=== PATIENT | female | born 1975 | race African-American/Black ===

== ENCOUNTER 2017-10-01 10:43 | Emergency (ER) | payer MEDICAID ==
[~2017-10-01] VITALS: Ht 162.6 cm; Wt 68.0 kg
[2017-10-01] MEDS ORDERED: IBUPROFEN600 MG ORAL (10:50)
[2017-10-01] MEDS ORDERED: ACETAMINOPHEN325 M1 ORAL (10:50)
[2017-10-01 10:55] VITALS: BP 133/76
[2017-10-01] MEDS ORDERED: Albuterol ud Inhalation HHN ONE (11:30)
[2017-10-01] MEDS ORDERED: Ipratropium 0.02% Inh Soln 2.5ml UD HHN ONE (11:30)
[2017-10-01 11:41] LABS: APPEARANCE,URINE CLEAR; BILIRUBIN, URINE NEGATIVE (NEGATIVE); COLOR,URINE PALE YELLOW; GLUCOSE, URINE (UA) NEGATIVE (NEGATIVE); KETONES,URINE NEGATIVE (NEGATIVE); NITRITE,URINE NEGATIVE (NEGATIVE); PH,URINE 8 (4.5-8.0); PROTEIN,URINE NEGATIVE (NEGATIVE); UROBILINOGEN,URINE NORMAL MG/DL (0.0-1.0)
[2017-10-01 11:46] LABS: BASOPHILS % (AUTO) 1.1 % (0.0-2.0); EOSINOPHILS % (AUTO) 1.2 % (0.0-3.0); HEMATOCRIT 30.4 % (37.0-47.0); HEMOGLOBIN 10.4 G/DL (12.0-16.0); LYMPHOCYTES % (AUTO) 22.8 % (20.0-45.0); MEAN CORPUSCULAR VOLUME 90 FL (80-99); MONOCYTES % (AUTO) 8.8 % (1.0-10.0); NEUTROPHILS % (AUTO) 66.1 % (45.0-75.0); PLATELET COUNT 279 K/UL (150-450); RED BLOOD COUNT 3.38 M/UL (4.20-5.40); WHITE BLOOD COUNT 4.6 K/UL (4.8-10.8)
[2017-10-01 11:54] LABS: LEUKOCYTE ESTERASE ,URINE 1+ (NEGATIVE)
--- NOTE | 2017-10-01 12:04 | Diagnostic Imaging Report ---
Indication: Reason For Exam: COUGH Technique: One view of the chest Comparison: Findings: Lungs and pleural spaces are clear. Heart size is normal Impression: No acute process
[2017-10-01 12:05] LABS: ANION GAP 6 mmol/L (5-15); BLOOD UREA NITROGEN 8 mg/dL (7-18); CALCIUM 8.7 MG/DL (8.5-10.1); CARBON DIOXIDE 28 MMOL/L (21-32); CHLORIDE 104 MMOL/L (98-107); POTASSIUM 4.2 MMOL/L (3.5-5.1); SODIUM 137 MMOL/L (136-145)
[2017-10-01 12:15] LABS: ALANINE AMINOTRANSFERASE 36 U/L (12-78); ALBUMIN 2.8 G/DL (3.4-5.0); ALBUMIN/GLOBULIN RATIO 0.7 (1.0-2.7); ALKALINE PHOSPHATASE 82 U/L (46-116); ASPARTATE AMINO TRANSFERASE 24 U/L (15-37); BILIRUBIN,TOTAL 0.3 MG/DL (0.2-1.0); CREATINE KINASE 94 U/L (26-308)
[2017-10-01 13:03] VITALS: BP 113/66
[2017-10-01] MEDS ORDERED: Morphine Sulfate 2mg/ml Inj IVP ONE (15:00)
--- NOTE | 2017-10-01 15:07 | Emergency Room Report ---
History of Present Illness General Chief Complaint: General Complaint Source: Patient (Sonu Downs M.D.) Present Illness HPI Patient is 8 days . She presents with bilateral leg swelling worse on the right-hand side. She also has swelling in her hands. There were no complications during the delivery. She's breast-feeding. She also has a nonproductive cough without fever. She denies any chest pain. She presents today because of shortness of breath. She has no calf pain. During her she had some chronic right leg pain and also some numbness of her ring and little finger on the right-hand side. No fevers or chills. She also has a slight odor to the lochia at this time. There's no dysuria. Never with wheezing before. No prior h/o asthma. (Sonu Downs M.D.) Allergies: Coded Allergies: SULFA (SULFONAMIDE ANTIBIOTICS) (Verified Allergy, Unknown, 10/01/17) Patient History Past Medical History: see triage record Last Menstrual Period: : 7 Para: 5 (Sonu Downs M.D.) Nursing Documentation-[facility] Past Medical History: No Stated History (Snou Downs M.D.) Physical Exam Vital Signs Date Time Temp Pulse Resp B/P (MAP) Pulse Ox O2 Delivery O2 Flow Rate FiO2 10/01/17 10:45 98.1 55 18 133/76 98 Room Air 10/01/17 11:30 21 Sp02 EP Interpretation: reviewed, normal General Appearance: well appearing, no apparent distress, GCS 15 Head: normocephalic, atraumatic Eyes: bilateral eye normal inspection, bilateral eye PERRL ENT: moist mucus membranes Neck: supple Respiratory: lungs clear, normal breath sounds Cardiovascular #1: regular rate, rhythm, edema - bilat R > L Cardiovascular #2: 2+ radial (R) Gastrointestinal: normal inspection, normal bowel sounds, non tender, no mass, non-distended Genitourinary: no CVA tenderness Musculoskeletal: back normal, gait/station normal, normal range of motion, no calf tenderness Neurologic: alert, oriented x3, grossly normal Psychiatric: mood/affect normal Skin: normal inspection, warm/dry (Sonu Downs M.D.) Medical Decision Making Diagnostic Impression: Primary Impression: Edema Qualified Codes: R60.9 - Edema, unspecified Additional Impressions: Bronchospasm 8 days post ER Course Patient with edema, worse on R with bronchospasm 8 days post-. Ddx: viral URI, bronchospasm, DVT, PE amongst others. Evaluation with EKG, CXR, non- invasive study of legs, labs. Will treat with albuterol/atrovent. At risk for PE, but HR and O2 sat against this. Also no chest pain or hemoptysis. EKG without injury. CXR with slight cardiomegaly, no CHF. Labs with normal WBC. Slight elevation of BNP. LFTs, platelets normal. No proteinuria. Non-invasive neg for DVT. Still suspicion high. CTA ordered. Some back pain . Ordered small dose morphine. Some improved pain. Await CTA. Signed out to Dr. Bright. Laboratory Tests Test 10/01/17 11:20 10/01/17 11:35 Urine Color Pale yellow Urine Appearance Clear Urine pH 8 (4.5-8.0) Urine Specific Novi 1.010 (1.005-1.035) Urine Protein Negative (NEGATIVE) Urine Glucose (UA) Negative (NEGATIVE) Urine Ketones Negative (NEGATIVE) Urine Occult Blood 5+ (NEGATIVE) H Urine Nitrite Negative (NEGATIVE) Urine Bilirubin Negative (NEGATIVE) Urine Urobilinogen Normal MG/DL (0.0-1.0) Urine Leukocyte Esterase 1+ (NEGATIVE) H Urine RBC 2-4 /HPF (0 - 2) H Urine WBC 2-4 /HPF (0 - 2) Urine Squamous Epithelial Cells Occasional /LPF Urine Bacteria Occasional /HPF (NONE) White Blood Count 4.6 K/UL (4.8-10.8) L Red Blood Count 3.38 M/UL (4.20-5.40) L Hemoglobin 10.4 G/DL (12.0-16.0) L Hematocrit 30.4 % (37.0-47.0) L Mean Corpuscular Volume 90 FL (80-99) Mean Corpuscular Hemoglobin 30.8 PG (27.0-31.0) Mean Corpuscular Hemoglobin Concent 34.2 G/DL (32.0-36.0) Red Cell Distribution Width 12.0 % (11.6-14.8) Platelet Count 279 K/UL (150-450) Mean Platelet Volume 5.8 FL (6.5-10.1) L Neutrophils (%) (Auto) 66.1 % (45.0-75.0) Lymphocytes (%) (Auto) 22.8 % (20.0-45.0) Monocytes (%) (Auto) 8.8 % (1.0-10.0) Eosinophils (%) (Auto) 1.2 % (0.0-3.0) Basophils (%) (Auto) 1.1 % (0.0-2.0) Prothrombin Time 10.2 SEC (9.30-11.50) Prothrombin Time INR 1.0 (0.9-1.1) PTT 31 SEC (23-33) Sodium Level 137 MMOL/L (136-145) Potassium Level 4.2 MMOL/L (3.5-5.1) Chloride Level 104 MMOL/L (98-107) Carbon Dioxide Level 28 MMOL/L (21-32) Anion Gap 6 mmol/L (5-15) Blood Urea Nitrogen 8 mg/dL (7-18) Creatinine 1.0 MG/DL (0.55-1.30) Estimate Glomerular Filtration Rate > 60 mL/min (>60) Glucose Level 76 MG/DL (74-106) Calcium Level 8.7 MG/DL (8.5-10.1) Total Bilirubin 0.3 MG/DL (0.2-1.0) Aspartate Amino Transferase (AST) 24 U/L (15-37) Alanine Aminotransferase (ALT) 36 U/L (12-78) Alkaline Phosphatase 82 U/L (46-116) Total Creatine Kinase 94 U/L (26-308) Troponin I 0.000 ng/mL (0.000-0.056) Pro-B-Type Natriuretic Peptide 739 pg/mL (0-125) H Total Protein 6.9 G/DL (6.4-8.2) Albumin 2.8 G/DL (3.4-5.0) L Globulin 4.1 g/dL Albumin/Globulin Ratio 0.7 (1.0-2.7) L Microbiology Date/Time Source Procedure Growth Status 10/01/17 11:20 Nasal Nares Influenza Types A,B Antigen (FE) - Final Complete (Sonu Downs M.D.) ER Course I received signout Please see above for full history and physical 42-year-old female with shortness of breath Her vital signs have remained stable, not hypoxic nontachypneic CT angiogram chest was done, negative for PE Patient has been feeling better, vital signs normal Will discharge home with strict return precautions, followup with primary care doctor in 4-5 days CTA CHEST: No evidence of filling defect to suggest pulmonary embolism Thoracic aorta within limits Small pericardial fluid No pleural effusion No focal consolidation (Matt Bright M.D.) EKG Diagnostic Results Rate: bradycardiac ST Segments: no acute changes (Sonu Downs M.D.) Rhythm Strip Diag. Results EP Interpretation: yes Rhythm: no PVC's, no ectopy, other - fernando (Sonu Downs M.D.) Last Vital Signs Date Time Temp Pulse Resp B/P (MAP) Pulse Ox O2 Delivery O2 Flow Rate FiO2 10/01/17 19:09 97.8 64 16 117/67 99 Room Air 21 70 Status: improved (Sonu Downs M.D.) Disposition: HOME, SELF-CARE Condition: Improved Referrals: NON PHYSICIAN (PCP) Sonu Downs M.D. Oct 01, 2017 15:06 Matt Bright M.D. Oct 01, 2017 18:14
[2017-10-01 19:08] VITALS: BP 117/67
[2017-10-01 19:09] VITALS: BP 117/67
[2017-10-02] MEDS ORDERED: ALBUTEROL SULF8.5 GM INH (08:27)
[2017-10-02] MEDS ORDERED: GUAIFENESIN DM118 M1 ORAL (08:27)
--- NOTE | 2017-10-02 11:20 | Diagnostic Imaging Report ---
ndication: Cough, bilateral lower leg edema x5 days, x8 days Technique: IV administration nonionic contrast. Spiral acquisitions obtained from the lung bases to the lung apices. Multiplanar and 3-D reconstructions were generated. Total dose length product 741.9 mGycm. CTDIvol(s) 22.91 mGy. Dose reduction achieved using automated exposure control Comparison: none Findings: Pulmonary arteries are well opacified. No intraluminal filling defects or other findings to suggest acute pulmonary and was demonstrated. No evidence of pulmonary arterial dilatation or biventricular dilatation. No evidence of thoracic aortic aneurysm or dissection There is of atelectasis are seen in the right lung apex. Some atelectasis or scarring is seen at the left lung base. Lungs and pleural spaces are otherwise clear. Normal heart size. There is trace pericardial effusion. No mediastinal or hilar mass or adenopathy. The thyroid is unremarkable. No axillary or chest wall mass or adenopathy. The breasts are engorged, consistent with state. The bones are unremarkable. The included upper abdominal anatomy is unremarkable. Impression: Negative for evidence of acute pulmonary embolus or other acute thoracic vascular pathology Clear lungs Equivocal trace pericardial fluid This agrees with the preliminary interpretation provided overnight by [facility] teleradiology service. The CT scanner at [facility] is accredited by the [employer] and the scans are performed using protocols designed to limit radiation exposure to as low as reasonably achievable to attain images of sufficient resolution adequate for diagnostic evaluation.
--- NOTE | 2017-10-02 18:22 | Cardiology Report ---
APPROVED REPORT EKG Measurement Heart [id number] Sinus bradycardia Otherwise normal ECG
--- NOTE | 2017-10-03 11:36 | Diagnostic Imaging Report ---
APPROVED REPORT CPT Code: 36885 Present Symptoms Comments: R/O DVT BILATERAL: Imaging reveals a patent deep venous system bilaterally. There is no evidence of thrombus within the femoral, popliteal or tibial segments. The greater saphenous veins are also within normal limits. Doppler indicates normal spontaneous flow within these segments.
== END 2017-10-01 19:11 | disposition home or self-care (01) ==
LOC: EMR 12:50
DX: O90.89 Other complications of the puerperium, not elsewhere classified (principal); R60.0 Localized edema; J98.01 Acute bronchospasm; R07.9 Chest pain, unspecified; R04.2 Hemoptysis; Z88.2 Allergy status to sulfonamides
CPT/HCPCS: 36415; 71045; 71275; 80053; 81003; 82550; 83880; 84484; 85025; 85610; 85730; 86710; 93005; 93970; 94640; 94664; 96374; 96375; 99284; J2270; J2405; Q9967; 84443

== ENCOUNTER 2017-12-07 19:29 | Emergency (ER) | payer MEDICAID ==
[~2017-12-07] VITALS: Ht 162.6 cm; Wt 63.5 kg
[~2017-12-07 19:29] MED LIST: ACETAMINOPHEN325 M1 ORAL; ALBUTEROL SULF8.5 GM INH; GUAIFENESIN DM118 M1 ORAL; IBUPROFEN600 MG ORAL
[2017-12-07 19:40] VITALS: BP 104/66
[2017-12-07] MEDS ORDERED: NKM (19:41)
--- NOTE | 2017-12-07 20:54 | Emergency Room Report ---
History of Present Illness General Chief Complaint: Skin Rash/Abscess Source: Patient Present Illness HPI 42 yo female patient presents to ER complaining of skin infection on left inner thigh x4 days. Reports painful and TTP. Reports attempted to drain at home with needle. Reports little pus expelled from abscess. Denies pain with bowel movements, denies blood in stool. Denies dysuria, hematuria. Denies fever, chills, chest pain, SOB, abdominal pain, vomiting, diarrhea. Allergies: Coded Allergies: SULFA (SULFONAMIDE ANTIBIOTICS) (Verified Allergy, Unknown, 10/01/17) Patient History Past Medical History: see triage record Last Menstrual Period: 11/30/17 Now: No : 7 Para: 5 Reviewed Nursing Documentation: PMH: Agreed; PSxH: Agreed Nursing Documentation-PMH Past Medical History: No Stated History Review of Systems All Other Systems: negative except mentioned in HPI Physical Exam Vital Signs Date Time Temp Pulse Resp B/P (MAP) Pulse Ox O2 Delivery O2 Flow Rate FiO2 12/07/17 19:38 97.9 104 14 104/66 96 Room Air 97.9 Sp02 EP Interpretation: reviewed, normal General Appearance: well appearing, no apparent distress, alert, GCS 15, non- toxic Head: normocephalic, atraumatic Eyes: bilateral eye normal inspection, bilateral eye PERRL Neck: full range of motion Respiratory: lungs clear, normal breath sounds, no rhonchi, no respiratory distress, no accessory muscle use, no wheezing, speaking full sentences Cardiovascular #1: regular rate, rhythm, no edema Musculoskeletal: back normal, digits/nails normal, gait/station normal, normal range of motion, non-tender Neurologic: alert, oriented x3, responsive, motor strength/tone normal, sensory intact Psychiatric: mood/affect normal Skin: other - abscess: indurated, 2cm, draining, erythema, TTP, no blood Lymphatic: no adenopathy Medical Decision Making PA Attestation Dr. Head is my supervising Physician whom patient management has been discussed with. Diagnostic Impression: Primary Impression: Perianal abscess ER Course Pt. presents to the ED c/o abscess on left inner thigh. Ddx considered but are not limited to cellulitis, abscess, fistula, hemorrhoid , pilonidal cyst. Low suspicion for perirectal abscess, no pain with defecation, no blood in stool , no fever. Will not order CT at this time. CURES report shows 5 day supply of Tylenol-Codeine given on 11/16/17. No other pain medication provided. Vital signs: are WNL, pt. is afebrile Ordered pain medication and Bacitracin. ED COURSE: Discuss treatment plan with patient. Chaperoned by nurse in ER for physical exam due to location of abscess. PE shows drained abscess, indurated. Attempted to express more pus in ER. Some pus expressed. Does not need I&D in ER at this time. Will redress and apply Bacitracin. Will treat with abx as outpatient. Instructed to return to ER immediately for new or worsening of symptoms. Sitz baths. Keep area clean and dry. DISCHARGE: -Rx provided for Cipro -Rx provided for Metronidazole -Rx provided for Tylenol #3. At this time pt. is stable for d/c to home. Patient resting comfortably, in no acute distress, nontoxic appearing. Will provide printed patient care instructions and any necessary prescriptions. Care plan and follow up instructions have been discussed with the patient prior to discharge. Patient instructed to follow-up with primary care provider in 2 - 3 days for wound recheck. Patient questions asked and answered. ER precautions given. Patient instructed to return to ER immediately for any new or worsening of symptoms including but not limited to fever, worsening of pain symptoms, worsening of erythema, pain with defecation, blood in stool. Last Vital Signs Date Time Temp Pulse Resp B/P (MAP) Pulse Ox O2 Delivery O2 Flow Rate FiO2 12/07/17 19:38 97.9 104 14 104/66 96 Room Air 97.9 Disposition: HOME, SELF-CARE Condition: Stable Scripts Acetaminophen With Codeine (T#3) (TYLENOL #3 TAB*) Y Tab 1 TAB ORAL Q4H PRN for For Pain, #14 TAB Prov: Sonny Roberto P.A. 12/07/17 Metronidazole* (FLAGYL*) 500 Mg Tablet 500 MG ORAL THREE TIMES A DAY, #21 TAB 0 Refills Prov: Sonny Roberto P.A. 12/07/17 Ciprofloxacin Hcl* (CIPROFLOXACIN HCL*) 500 Mg Tablet 500 MG ORAL EVERY 12 HOURS for 7 Days, #14 TAB 0 Refills Prov: Sonny Roberto P.A. 12/07/17 Patient Instructions: Abscess Additional Instructions: Followup with primary care provider in 3 -5 days for wound check. Take medications as directed. Patient questions asked and answered. ER precautions given, patient instructed to return to ER immediately for any new or worsening of symptoms. Sonny Roberto Dec 07, 2017 20:54
[2017-12-07] MEDS ORDERED: CIPROFLOXACIN500 M2 ORAL (21:00)
[2017-12-07] MEDS ORDERED: METRONIDAZOLE500 MG ORAL (21:00)
[2017-12-07] MEDS ORDERED: Bacitracin Oint UD TOPIC ONE (21:15)
[2017-12-07] MEDS ORDERED: ACETAMINOPHEN-1 EAC1 ORAL (21:20)
[2017-12-07 21:39] VITALS: BP 104/66
== END 2017-12-07 21:39 | disposition home or self-care (01) ==
LOC: EMR 20:20
DX: K61.0 Anal abscess (principal); Z88.2 Allergy status to sulfonamides
CPT/HCPCS: 99284

== ENCOUNTER 2017-12-09 13:10 | Emergency (ER) | payer MEDICAID ==
[~2017-12-09] VITALS: Ht 162.6 cm; Wt 63.5 kg
[~2017-12-09 13:10] MED LIST changes: +ACETAMINOPHEN-1 EAC1 ORAL; +CIPROFLOXACIN500 M2 ORAL; +METRONIDAZOLE500 MG ORAL; +NKM
[2017-12-09 13:26] VITALS: BP 113/73
--- NOTE | 2017-12-09 14:37 | Emergency Room Report ---
History of Present Illness General Chief Complaint: General Complaint Source: Patient Present Illness HPI 42-year-old female presents to the emergency department complaining of 5 out of 10 in severity pain, tenderness, swelling, erythema and purulent drainage from the left lower buttock 3-4 days. Patient was here several days ago and was prescribed antibiotics feeling dizzy intermittently. Denies fevers, chills, rash, swelling of the lips or tongue. Patient states she has been doing multiple hot sitz baths daily. She denies vertigo. She denies blood in the vomit or stool, dark tarry stools. Patient reports one episode of vomiting yesterday small amount of acid/bile after taking medications on an empty stomach. States that she may have had a similar reaction to the same medication many years ago. Denies , abdominal pain or abdominal tenderness. Denies CP, Palpitations, LOC, AMS, dizziness, Changes in Vision, Sensation, paresthesias, or a sudden severe headache. Allergies: Coded Allergies: SULFA (SULFONAMIDE ANTIBIOTICS) (Verified Allergy, Unknown, 10/01/17) Patient History Past Medical History: see triage record Past Surgical History: none Pertinent Family History: none Last Menstrual Period: 11/30/17 Immunizations: UTD Reviewed Nursing Documentation: PMH: Agreed; PSxH: Agreed Nursing Documentation-PMH Past Medical History: No Stated History Review of Systems All Other Systems: negative except mentioned in HPI Physical Exam Vital Signs Date Time Temp Pulse Resp B/P (MAP) Pulse Ox O2 Delivery O2 Flow Rate FiO2 12/09/17 13:16 97.6 94 17 113/73 97 Room Air 97.5 Sp02 EP Interpretation: reviewed, normal General Appearance: alert, GCS 15, non-toxic, mild distress Head: normocephalic, atraumatic ENT: hearing grossly normal, normal voice Neck: full range of motion Respiratory: chest non-tender, lungs clear, normal breath sounds, speaking full sentences Cardiovascular #1: regular rate, rhythm Gastrointestinal: normal bowel sounds, non tender, soft Musculoskeletal: back normal, gait/station normal, normal range of motion, non- tender Neurologic: alert, oriented x3, responsive, sensory intact, speech normal, grossly normal Psychiatric: judgement/insight normal Skin: no rash, warm/dry, well hydrated, other - 3cm abscess of the lower left buttock which has induration and palpable fluctuance Lymphatic: no adenopathy Procedures Incision and Drainage Incision and Drainage : Consent: Verbal Site: Left Lower buttock I & D Procedure: betadine prep, sterile drapes applied, sterile dressing applied Wound Location: other - Left Lower buttock Wound's Depth, Shape: superficial Wound Length (cm): 1 Wound Explored: contaminated - Purulent drainage expressed. Anesthesia: 1% Lidocaine Volume Anesthetic (ccs): 2 Splint Applied?: No Sling Applied?: No Patient Tolerated: Well Complications: None Medical Decision Making PA Attestation Dr. Lee is my supervising Physician whom patient management has been discussed with. Diagnostic Impression: Primary Impression: Abscess ER Course 42-year-old female presents to the emergency department complaining of 5 out of 10 in severity pain, tenderness, swelling, erythema and purulent drainage from the left lower buttock 3-4 days. Patient was here several days ago and was prescribed antibiotics feeling dizzy intermittently. Denies fevers, chills, rash, swelling of the lips or tongue. Patient states she has been doing multiple hot sitz baths daily. She denies vertigo. She denies blood in the vomit or stool, dark tarry stools. Patient reports one episode of vomiting yesterday small amount of acid/bile after taking medications on an empty stomach. States that she may have had a similar reaction to the same medication many years ago. Denies , abdominal pain or abdominal tenderness. Denies CP, Palpitations, LOC, AMS, dizziness, Changes in Vision, Sensation, paresthesias, or a sudden severe headache. Ddx considered but are not limited to cellulitis, abscess, cystic acne, necrotizing fasciitis, insect bite. Vital signs: are WNL, pt. is afebrile H&PE are most consistent with 3cm abscess of the lower left buttock which has induration and palpable fluctuance. I feel I&D is most appropriate at this time. ORDERS: none required at this time, the diagnosis is clinical ED INTERVENTIONS: -I & D. DISCHARGE: At this time pt. is stable for d/c to home. Will provide printed patient care instructions, and any necessary prescriptions. Care plan and follow up instructions have been discussed with the patient prior to discharge. Last Vital Signs Date Time Temp Pulse Resp B/P (MAP) Pulse Ox O2 Delivery O2 Flow Rate FiO2 12/09/17 13:55 97.5 12/09/17 13:26 78 17 113/73 97 Room Air Disposition: HOME, SELF-CARE Condition: Stable Scripts Bacitracin/Polymyxin B Sulfate (BACITRACIN-POLYMYXIN OINTMENT) 28.35 Gm Oint...g. 28.3 APPLIC TP BID, #28.3 GM Prov: Miriam Camp 12/09/17 Ibuprofen* (MOTRIN*) 400 Mg Tablet 400 MG ORAL THREE TIMES A DAY, #20 TAB 0 Refills Prov: Miriam Camp 12/09/17 Doxycycline Hyclate* (VIBRAMYCIN*) 100 Mg Capsule 100 MG ORAL EVERY 12 HOURS for 10 Days, #20 CAP 0 Refills Prov: Miriam Camp 12/09/17 Patient Instructions: Abscess Additional Instructions: Take medications as directed. Discontinue previously prescribed antibiotics, monitor for signs of worsening infection such as fevers, chills, increased redness or worsening of her current symptoms. Follow up with a Primary Care Provider in 3-5 days, even if your symptoms have resolved. --Please review list of primary care clinics, if you do not already have a primary care provider Return sooner to ED if new symptoms occur, or current symptoms become worse. - Please note that this Emergency Department Report was dictated using [employer] forming equipment operator technology software, occasionally this can lead to erroneous entry secondary to interpretation by the dictation equipment. Miriam Camp Dec 09, 2017 14:37
[2017-12-09] MEDS ORDERED: IBUPROFEN400 MG ORAL (14:39)
[2017-12-09] MEDS ORDERED: VIBRAMYCIN100 MG ORAL (14:39)
[2017-12-09] MEDS ORDERED: BACITRACIN-P28.35 GM TP (14:39)
[2017-12-09 15:15] VITALS: BP 118/79
== END 2017-12-09 15:21 | disposition home or self-care (01) ==
LOC: EMR 13:50
DX: L02.31 Cutaneous abscess of buttock (principal); Z88.2 Allergy status to sulfonamides
CPT/HCPCS: 10060; 99284